=== PATIENT | female | born 1985 | race Caucasian/White ===

== ENCOUNTER 2024-04-01 12:06 | Emergency (ER) | payer MEDICAID, OTHER ==
[~2024-04-01] VITALS: Ht 162.6 cm; Wt 104.3 kg
--- NOTE | 2024-04-01 12:08 | NUR ---
BIBS C/O R SIDE ABDOMINAL PAIN, NAUSEA AND FEVER X YESTERDAY. [employer].
[2024-04-01 12:18] VITALS: TEMP 98.2
--- NOTE | 2024-04-01 12:49 | NUR ---
covid swab collected and sent to lab
[2024-04-01 12:53] LABS: APPEARANCE,URINE SLIGHTLY CLOUDY (CLEAR); BILIRUBIN,URINE NEGATIVE (NEGATIVE); BLOOD, URINE NEGATIVE Ery/uL (NEGATIVE); COLOR,URINE YELLOW (YELLOW); KETONES,URINE NEGATIVE (NEGATIVE); LEUKOCYTE ESTERASE ,URINE 2+ (NEGATIVE); NITRITE, URINE NEGATIVE (NEGATIVE); PROTEIN,URINE NEGATIVE (NEGATIVE); UGLUCOSE NEGATIVE (NEGATIVE); UROBILINOGEN,URINE 0.2 EU/dL (0.2)
[2024-04-01 13:08] LABS: SQUAMOUS EPITHELIAL CELL,UR Moderate /HPF (None Seen)
[2024-04-01 13:14] LABS: RBC,URINE 0-2 /HPF (0-2)
[2024-04-01 13:15] LABS: ADD URINE CULTURE YES; BACTERIA,URINE Rare /HPF (None Seen); PREGNANCY TEST URINE QUAL NEGATIVE (NEGATIVE)
[2024-04-01] MEDS ORDERED: CEPH-570 PO (13:29)
--- NOTE | 2024-04-01 13:43 | NUR ---
Patient discharged to home in stable condition. Written and verbal after care instructions given. Patient verbalizes understanding of instruction.
[2024-04-01 14:05] VITALS: BP 145/85; O2SAT 97
== END 2024-04-01 13:43 | disposition home or self-care (01) ==
LOC: ER 12:14
DX: N39.0 Urinary tract infection, site not specified (principal); F31.9 Bipolar disorder, unspecified; R10.2 Pelvic and perineal pain; Z79.899 Other long term (current) drug therapy; Z20.822 Contact with and (suspected) exposure to COVID-19
CPT/HCPCS: 71045-TC; 81001; 84703-TC; 87086-TC